=== PATIENT | female | born 1995 | race Caucasian/White ===

== ENCOUNTER 2017-05-08 15:54 | Emergency (ER) | payer OTHER ==
[~2017-05-08] VITALS: Ht 167.6 cm; Wt 65.8 kg
== END 2017-05-08 19:30 | disposition left against medical advice (07) ==
LOC: ER 15:54
DX: R10.9 Unspecified abdominal pain (principal)

== ENCOUNTER 2017-05-14 00:31 | Emergency (ER) | payer OTHER ==
[~2017-05-14] VITALS: Ht 167.6 cm; Wt 63.5 kg
--- OUTSIDE RECORDS SUMMARY | 2017-05-14 00:34 | XMS REPORT | Continuity of Care Document ---
Author Author [facility] Organization [facility] Address [address] [place] [address] Phone Unavailable Care Team Providers Care Collet Gluer Name Role Phone NO, PCP PCP Unavailable Insurance Providers Guarantor Forrest Mendoza Address [address] [place] [address] Email [email or web address] Payer Miscellaneous Hmo Policy Number [id number] Subscriber's Name JannForrest Acuna Relationship 18 Self / Same As Patient Advance Directives Directive Response Recorded Date/Time Does the patient have an advance directive? No 05/08/17 4:48pm If yes, is advance directive on file with [facility]? No 05/08/17 4:48pm If not on file with [facility] will patient provide a copy? No 05/08/17 4:48pm Do you have a Directive to Physician? No 05/08/17 4:48pm Do you have a Medical Power of Linotype Mechanic? No 05/08/17 4:48pm Do you have an out of hospital Do Not Resuscitate Order? No 05/08/17 4:48pm Do you have any special needs we should be aware of? No 05/08/17 4:48pm Do you have a support person here with you today? Yes 05/08/17 4:48pm Did patient receive Notice of Privacy Practices? Yes 05/08/17 4:48pm Did patient receive patient rights and responsibilities? Yes 05/08/17 4:48pm Problems No problem information available. Medications No medication information available. Social History Smoking Status Start Date Stop Date Current every day smoker Hospital Discharge Instructions No hospital discharge instruction information available. Plan of Care Discharge Date 05/08/17 7:30pm Disposition ELOPED Condition at Discharge Stable Forms Provided Work/School Excuse Prescriptions See Medication Section Functional Status No functional status information available. Allergies, Adverse Reactions, Alerts Allergen Type Severity Reaction Status Last Updated Sulfamethoxazole Allergy Unknown HIVES Active 05/08/17 Trimethoprim Allergy Unknown HIVES Active 05/08/17 Ciprofloxacin Allergy Unknown HIVES Active 05/08/17 Amoxicillin Allergy Unknown HIVES Active 05/08/17 Immunizations No immunization information available. Vital Signs Acute Vital Signs Vital Response Date/Time Height 5 ft 6 in 05/08/2017 4:09pm Weight 145 lb 05/08/2017 4:09pm Body Mass Index 23.4 kg/m^2 05/08/2017 4:09pm Results No relevant diagnostic test, laboratory data and/or discharge summary information available. Procedures No procedure information available. Encounters Encounter Location Arrival/Admit Date Discharge/Depart Date Attending Provider Departed Emergency Room [facility] 05/08/17 3:54pm 7:30pm CAMMY SANDOVAL MD
[2017-05-14] MEDS ORDERED: LORAZEPAM INJ 2 MG/ML VIAL IV ONE (00:45)
[2017-05-14] MEDS ORDERED: SODIUM CHLORIDE 0.9% 1000ML 1,000 ML IV SCH (00:45)
[2017-05-14] MEDS ORDERED: SODIUM CHLORIDE 0.9% 1000ML 1,000 ML ONE (00:51)
[2017-05-14 01:44] VITALS: BP 128/77
== END 2017-05-14 02:21 | disposition home or self-care (01) ==
LOC: ER 00:31
DX: R25.1 Tremor, unspecified (principal); R46.2 Strange and inexplicable behavior; F17.200 Nicotine dependence, unspecified, uncomplicated; Z87.898 Personal history of other specified conditions
CPT/HCPCS: 99283; J2060; J7030